=== PATIENT | male | born 1970 | race Native Hawaiian/Other Pacific Islander ===

== ENCOUNTER 2023-05-14 16:09 | Outpatient (CLI) | payer OTHER | END 2023-05-14 20:33 | disposition home or self-care (01) | LOC: RAD 16:09 | PROVIDERS: ATTEND Nurse Practitioner Family | DX: S60.221A Contusion of right hand, initial encounter (principal); Y92.89 Other specified places as the place of occurrence of the external cause | CPT/HCPCS: 80307; 80320 ==